=== PATIENT | female | born 1955 | race Caucasian/White ===

== ENCOUNTER 2016-06-03 13:44 | Emergency (ER) ==
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
[2016-06-03] MEDS ORDERED: NS 1,000 ML IV ONE (15:00)
[2016-06-03 15:35] LABS: AGAP 12; BUN 15 mg/dL (8-22); CALCIUM 9.4 mg/dL (8.8-10.2); CHLORIDE 96 mmol/L (98-107); COSMO 292; POTASSIUM 5.3 mmol/L (3.5-5.1); SODIUM 134 mmol/L (136-145); TCO2 26 mmol/L (25-35)
[2016-06-03] MEDS ORDERED: HUMULIN R SUBQ ONE (15:39)
--- NOTE | 2016-06-03 15:51 | Diag Imaging Result Document ---
PROCEDURE NAME: FEMUR MIN 2 VIEWS LEFT - 06/03/2016 LEFT FEMUR 4 VIEWS: COMPARISON: 05/25/2016. FINDINGS: Bones are intact and normally aligned. Joint spaces and soft tissues are clear. IMPRESSION: Negative exam.
[2016-06-03 17:10] VITALS: BP 194/109
== END 2016-06-03 17:17 | disposition home or self-care (01) ==
LOC: EDBD → ED 13:44
DX: S70.12XA Contusion of left thigh, initial encounter (principal); E11.65 Type 2 diabetes mellitus with hyperglycemia; M79.652 Pain in left thigh; I10 Essential (primary) hypertension; E78.5 Hyperlipidemia, unspecified; M19.90 Unspecified osteoarthritis, unspecified site; Z79.899 Other long term (current) drug therapy; Z91.14 Patient's other noncompliance with medication regimen; V03.10XA Pedestrian on foot injured in collision with car, pick-up truck or van in traffic accident, initial encounter
CPT/HCPCS: 80048; 82948; J7030

== ENCOUNTER 2016-06-13 17:11 | Emergency (ER) ==
[2016-06-13 17:23] VITALS: BP 163/97
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
[2016-06-13] MEDS ORDERED: PERCOCET-5 PO ONE (19:37)
[2016-06-13] MEDS ORDERED: TORADOL IM ONE (19:37)
--- NOTE | 2016-06-13 19:52 | Diag Imaging Result Document ---
PROCEDURE NAME: PELVIS W/O CONTRAST - 06/13/2016 STUDY: CT bony pelvis without contrast. The pubic symphysis is not widened. No separation to the sacroiliac joints. Neither hip is dislocated. There is an avulsed fragment from the greater trochanter of the left femur. No other femoral fracture. IMPRESSION: Avulsed fragment from the greater trochanter of the left femur. A preliminary report was given at 6:21 p.m.
== END 2016-06-13 20:16 | disposition home or self-care (01) ==
LOC: P.ED 17:11
DX: S72.112D Displaced fracture of greater trochanter of left femur, subsequent encounter for closed fracture with routine healing (principal); M25.552 Pain in left hip; M79.605 Pain in left leg; R53.1 Weakness; I10 Essential (primary) hypertension; E78.5 Hyperlipidemia, unspecified; K21.9 Gastro-esophageal reflux disease without esophagitis; M19.90 Unspecified osteoarthritis, unspecified site; E11.9 Type 2 diabetes mellitus without complications; E07.9 Disorder of thyroid, unspecified; F17.290 Nicotine dependence, other tobacco product, uncomplicated; Z71.6 Tobacco abuse counseling; V09.3 Pedestrian injured in unspecified traffic accident; Z79.899 Other long term (current) drug therapy; Z79.4 Long term (current) use of insulin
CPT/HCPCS: 72192; 96372; J1885